=== PATIENT | female | born 1935 | race Caucasian/White ===

== ENCOUNTER 2021-01-16 09:18 | Inpatient (IN) | payer MEDICARE ==
[2021-01-16 10:09] LABS: Anisocytosis Slight; Basophils % (A) 0 %; Eosinophils # (A) 0.2 k/uL (0-0.7); Eosinophils % (A) 1 %; HCT 21.6 % (34.0-46.0); HGB 7.2 gm/dL (11.4-16.0); Hypochromasia Slight; Lymphocytes # (A) 0.8 k/uL (1.0-4.8); Lymphocytes % (A) 4 %; MCHC 33.1 g/dL (31.0-37.0); MCV 93.8 fL (80.0-100.0); Mean Platelet Volume 8.1; Monocytes # (A) 0.6 k/uL (0-1.0); Monocytes % (A) 3 %; Neutrophils # (A) 17.5 k/uL (1.3-7.7); Neutrophils % (A) 91 %; Platelet Count 149 k/uL (150-450); Poikilocytosis Slight; RBC 2.31 m/uL (3.80-5.40); RDW 16.5 % (11.5-15.5); WBC 19.2 k/uL (3.8-10.6)
[2021-01-16 10:26] LABS: Albumin 2.6 g/dL (3.5-5.0); Calcium 9.1 mg/dL (8.4-10.2); Potassium 3.1 mmol/L (3.5-5.1); Total Bilirubin 0.4 mg/dL (0.2-1.3); Total Protein 4.9 g/dL (6.3-8.2)
[2021-01-16 10:32] LABS: INR 1.1 (<1.2); Prothrombin Time 11.2 sec (9.0-12.0)
[2021-01-16 10:45] LABS: Amorphous Sediment,Urine Rare /hpf; Appearance,Urine Cloudy (Clear); Bacteria,Urine Occasional /hpf; Bilirubin,Urine Negative (Negative); Blood,Urine Moderate (Negative); Color,Urine Yellow; Glucose,Urine (UA) Negative (Negative); Hyaline Casts,Urine 1 /lpf (0-2); Ketones,Urine Negative (Negative); Leukocyte Esterase,Urine Small (Negative); Nitrite,Urine Negative (Negative); Protein,Urine 1+ (Negative); RBC,Urine 1 /hpf (0-5); Specific Gravity,Urine 1.014 (1.001-1.035); Urobilinogen,Urine <2.0 mg/dL (<2.0); WBC,Urine 2 /hpf (0-5)
[2021-01-16 10:51] LABS: Partial Thromboplastin Time 21.2 sec (22.0-30.0)
--- NOTE | 2021-01-16 11:51 | XR ---
EXAMINATION TYPE: XR chest 1V portable DATE OF EXAM: 01/16/2021 COMPARISON: NONE HISTORY: Shortness of breath TECHNIQUE: Single frontal view of the chest is obtained. FINDINGS: Diffuse bilateral interstitial and mixed alveolar pattern with basilar infiltrate and smal l effusion. Heart prominent. Diffuse osteopenia. No pneumothorax. IMPRESSION: Diffuse interstitial and alveolar infiltrates correlate for CHF versus interstitial pneu monia.
--- NOTE | 2021-01-16 11:51 | CT ---
EXAMINATION TYPE: CT brain wo con DATE OF EXAM: 01/16/2021 COMPARISON: None HISTORY: altered mental status CT DLP: 1102.4 mGycm Automated exposure control for dose reduction was used. FINDINGS: Moderate generalized degenerative change. Calcification within the high right parietal sulcus likely vascular. Low-attenuation the white matter nonspecific but most typical of remote white matter ischem ia. No mass effect or midline shift. No acute hemorrhage. Intracranial atherosclerotic changes are noted. Calvarium intact. Craniocervical junction maintained. Orbits are symmetric. There is a nasal septal deviation. No significant mucosal thickening. 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
--- NOTE | 2021-01-16 12:32 | ED ---
Altered Mental Status HPI - General Chief Complaint: Altered Mental Status Stated Complaint: altered Source: EMS Mode of arrival: EMS Limitations: altered mental status, physical limitation - History of Present Illness Initial Comments: Patient is an 85-year-old female who presents to the hospital from [facility]. Staff stated that the patient is normally a and O 2-3 however today was only a and O 1. She was also found to have hypoxia on her normal 3 L and she had 2 episodes of dark stool yesterday. Patient has only been at their facility for 2 days. Previously was hospitalized at [facility]. The patient arrives alert and oriented 1. Cannot provide much history. Denies any pain. Reports to a good appetite. The remainder of the HPI is limited due to the poor history provided by [facility] and current clinical condition of the patient. - Related Data Home Medications Medication Instructions Recorded Confirmed Acetaminophen Tab [Tylenol] 650 mg PO Q6H PRN 01/16/21 01/16/21 Albuterol Sulfate [Ventolin HFA] 2 puff INHALATION RT-Q6H PRN 01/16/21 01/16/21 Calcium Carbonate/Vitamin D3 1 tab PO DAILY@0700 01/16/21 01/16/21 [Calcium 500 mg-Vit D3 5 mcg (200 Unit)] Carvedilol [Coreg] 25 mg PO BID@0700,1600 01/16/21 01/16/21 Furosemide [Lasix] 20 mg PO BID@0700,1600 01/16/21 01/16/21 INSULIN LISPRO (humaLOG) [humaLOG] See Protocol SQ ACHS 01/16/21 01/16/21 Insulin Degludec [Tresiba 14 units SQ DAILY@0700 01/16/21 01/16/21 Flextouch U-100] Omeprazole 20 mg PO HS@2000 01/16/21 01/16/21 Allergies Allergy/AdvReac Type Severity Reaction Status Date / Time No Known Allergies Allergy Verified 01/16/21 12:33 Review of Systems ROS Statement: Those systems with pertinent positive or pertinent negative responses have been documented in the HPI. ROS Other: All systems not noted in ROS Statement are negative. Past Medical History Past Medical History: Unable to Obtain, COPD, Hyperlipidemia, Hypertension, Renal Disease History of Any Multi-Drug Resistant Organisms: Unobtainable Past Surgical History: Unable to Obtain Smoking Status: Unknown if ever smoked General Exam Limitations: altered mental status, physical limitation General appearance: lethargic Head exam: Present: atraumatic, normocephalic, normal inspection Eye exam: Present: normal appearance, PERRL, EOMI. Absent: scleral icterus, conjunctival injection, periorbital swelling ENT exam: Present: mucous membranes dry Respiratory exam: Present: normal lung sounds bilaterally. Absent: respiratory distress, wheezes, rales, rhonchi, stridor Cardiovascular Exam: Present: regular rate, normal rhythm, normal heart sounds. Absent: systolic murmur, diastolic murmur, rubs, gallop, clicks GI/Abdominal exam: Present: soft, normal bowel sounds. Absent: distended, tenderness, guarding, rebound, rigid Rectal exam: Present: black stool Extremities exam: Present: normal inspection, full ROM, normal capillary refill. Absent: tenderness, pedal edema, joint swelling, calf tenderness Neurological exam: Present: altered, other (oriented x 1) Psychiatric exam: Present: flat affect Course Vital Signs 01/16/21 01/16/21 01/16/21 09:24 10:29 12:19 Temperature 97.5 F L Pulse Rate 68 71 56 L Respiratory 18 18 17 Rate Blood Pressure 100/46 119/58 103/46 O2 Sat by Pulse 94 L 100 100 Oximetry 01/16/21 01/16/21 01/16/21 14:44 16:18 19:30 Temperature Pulse Rate 68 74 Respiratory 17 18 Rate Blood Pressure 114/56 101/50 O2 Sat by Pulse 97 98 95 Oximetry Procedures - [place] Protocol (Time Out) Nurse: Josefina Hart Medical Decision Making - Medical Decision Making Upon arrival patient was placed in room 16. Thorough history and physical exam was performed. Patient cannot provide much history. I did draw laboratory studies. Chest x-ray and CT of the brain is performed. Lab studies demonstrate a white count of 19.2. Sodium 157. 3.1 potassium. Creatinine is 3. Troponin is 0.757. Rectal exam is performed and demonstrates melenic stools. Patient cannot be heparinized due to current GI bleed. UA demonstrates occasional bacteria. CT of the brain demonstrates degenerative and nonspecific white matter changes. Chest x-ray demonstrates diffuse interstitial and alveolar infiltrates. I did start the patient on gentle fluid hydration with normal saline. Unknown patient's baseline labs. Recommended admission. Dr. Ashraf accepted admission. She is awaiting a bed on the floor. - Lab Data Result diagrams: 01/19/21 10:54 01/19/21 10:54 Lab Results 01/16/21 01/16/21 01/16/21 Range/Units 09:32 09:32 09:32 WBC (3.8-10.6) k/uL RBC (3.80-5.40) m/uL Hgb (11.4-16.0) gm/dL Hct (34.0-46.0) % MCV (80.0-100.0) fL MCH (25.0-35.0) pg MCHC (31.0-37.0) g/dL RDW (11.5-15.5) % Plt Count (150-450) k/uL MPV Neutrophils % % Lymphocytes % % Monocytes % % Eosinophils % % Basophils % % Neutrophils # (1.3-7.7) k/uL Lymphocytes # (1.0-4.8) k/uL Monocytes # (0-1.0) k/uL Eosinophils # (0-0.7) k/uL Basophils # (0-0.2) k/uL Hypochromasia Poikilocytosis Anisocytosis PT 11.2 (9.0-12.0) sec INR 1.1 (<1.2) APTT 21.2 L (22.0-30.0) sec Sodium 157 H (137-145) mmol/L Potassium 3.1 L (3.5-5.1) mmol/L Chloride 119 H (98-107) mmol/L Carbon Dioxide 33 H (22-30) mmol/L Anion Gap 5 mmol/L BUN 92 H (7-17) mg/dL Creatinine 3.08 H (0.52-1.04) mg/dL Est GFR (CKD-EPI)AfAm 15 (>60 ml/min/1.73 sqM) Est GFR (CKD-EPI)NonAf 13 (>60 ml/min/1.73 sqM) Glucose 129 H (74-99) mg/dL Calcium 9.1 (8.4-10.2) mg/dL Total Bilirubin 0.4 (0.2-1.3) mg/dL AST 30 (14-36) U/L ALT 22 (4-34) U/L Alkaline Phosphatase 80 (38-126) U/L Creatine Kinase 86 (30-135) U/L Troponin I 0.757 H* (0.000-0.034) ng/mL Total Protein 4.9 L (6.3-8.2) g/dL Albumin 2.6 L (3.5-5.0) g/dL Urine Color Urine Appearance (Clear) Urine pH (5.0-8.0) Ur Specific [place] (1.001-1.035) Urine Protein (Negative) Urine Glucose (UA) (Negative) Urine Ketones (Negative) Urine Blood (Negative) Urine Nitrite (Negative) Urine Bilirubin (Negative) Urine Urobilinogen (<2.0) mg/dL Ur Leukocyte Esterase (Negative) Urine RBC (0-5) /hpf Urine WBC (0-5) /hpf Amorphous Sediment (None) /hpf Urine Bacteria (None) /hpf Hyaline Casts (0-2) /lpf Stool Occult Blood (Negative) Influenza Type A (PCR) (Not Detectd) Influenza Type B (PCR) (Not Detectd) RSV (PCR) (Not Detectd) SARS-CoV-2 (PCR) (Not Detectd) Blood Type Confirm 01/16/21 01/16/21 01/16/21 Range/Units 09:54 09:54 09:54 WBC 19.2 H (3.8-10.6) k/uL RBC 2.31 L (3.80-5.40) m/uL Hgb 7.2 L (11.4-16.0) gm/dL Hct 21.6 L (34.0-46.0) % MCV 93.8 (80.0-100.0) fL MCH 31.0 (25.0-35.0) pg MCHC 33.1 (31.0-37.0) g/dL RDW 16.5 H (11.5-15.5) % Plt Count 149 L (150-450) k/uL MPV 8.1 Neutrophils % 91 % Lymphocytes % 4 % Monocytes % 3 % Eosinophils % 1 % Basophils % 0 % Neutrophils # 17.5 H (1.3-7.7) k/uL Lymphocytes # 0.8 L (1.0-4.8) k/uL Monocytes # 0.6 (0-1.0) k/uL Eosinophils # 0.2 (0-0.7) k/uL Basophils # 0.0 (0-0.2) k/uL Hypochromasia Slight Poikilocytosis Slight Anisocytosis Slight PT (9.0-12.0) sec INR (<1.2) APTT (22.0-30.0) sec Sodium (137-145) mmol/L Potassium (3.5-5.1) mmol/L Chloride (98-107) mmol/L Carbon Dioxide (22-30) mmol/L Anion Gap mmol/L BUN (7-17) mg/dL Creatinine (0.52-1.04) mg/dL Est GFR (CKD-EPI)AfAm (>60 ml/min/1.73 sqM) Est GFR (CKD-EPI)NonAf (>60 ml/min/1.73 sqM) Glucose (74-99) mg/dL Calcium (8.4-10.2) mg/dL Total Bilirubin (0.2-1.3) mg/dL AST (14-36) U/L ALT (4-34) U/L Alkaline Phosphatase (38-126) U/L Creatine Kinase (30-135) U/L Troponin I (0.000-0.034) ng/mL Total Protein (6.3-8.2) g/dL Albumin (3.5-5.0) g/dL Urine Color Yellow Urine Appearance Cloudy H (Clear) Urine pH 5.0 (5.0-8.0) Ur Specific [place] 1.014 (1.001-1.035) Urine Protein 1+ H (Negative) Urine Glucose (UA) Negative (Negative) Urine Ketones Negative (Negative) Urine Blood Moderate H (Negative) Urine Nitrite Negative (Negative) Urine Bilirubin Negative (Negative) Urine Urobilinogen <2.0 (<2.0) mg/dL Ur Leukocyte Esterase Small H (Negative) Urine RBC 1 (0-5) /hpf Urine WBC 2 (0-5) /hpf Amorphous Sediment Rare H (None) /hpf Urine Bacteria Occasional H (None) /hpf Hyaline Casts 1 (0-2) /lpf Stool Occult Blood Positive H (Negative) Influenza Type A (PCR) (Not Detectd) Influenza Type B (PCR) (Not Detectd) RSV (PCR) (Not Detectd) SARS-CoV-2 (PCR) (Not Detectd) Blood Type Confirm 01/16/21 01/16/21 Range/Units 09:54 09:54 WBC (3.8-10.6) k/uL RBC (3.80-5.40) m/uL Hgb (11.4-16.0) gm/dL Hct (34.0-46.0) % MCV (80.0-100.0) fL MCH (25.0-35.0) pg MCHC (31.0-37.0) g/dL RDW (11.5-15.5) % Plt Count (150-450) k/uL MPV Neutrophils % % Lymphocytes % % Monocytes % % Eosinophils % % Basophils % % Neutrophils # (1.3-7.7) k/uL Lymphocytes # (1.0-4.8) k/uL Monocytes # (0-1.0) k/uL Eosinophils # (0-0.7) k/uL Basophils # (0-0.2) k/uL Hypochromasia Poikilocytosis Anisocytosis PT (9.0-12.0) sec INR (<1.2) APTT (22.0-30.0) sec Sodium (137-145) mmol/L Potassium (3.5-5.1) mmol/L Chloride (98-107) mmol/L Carbon Dioxide (22-30) mmol/L Anion Gap mmol/L BUN (7-17) mg/dL Creatinine (0.52-1.04) mg/dL Est GFR (CKD-EPI)AfAm (>60 ml/min/1.73 sqM) Est GFR (CKD-EPI)NonAf (>60 ml/min/1.73 sqM) Glucose (74-99) mg/dL Calcium (8.4-10.2) mg/dL Total Bilirubin (0.2-1.3) mg/dL AST (14-36) U/L ALT (4-34) U/L Alkaline Phosphatase (38-126) U/L Creatine Kinase (30-135) U/L Troponin I (0.000-0.034) ng/mL Total Protein (6.3-8.2) g/dL Albumin (3.5-5.0) g/dL Urine Color Urine Appearance (Clear) Urine pH (5.0-8.0) Ur Specific [place] (1.001-1.035) Urine Protein (Negative) Urine Glucose (UA) (Negative) Urine Ketones (Negative) Urine Blood (Negative) Urine Nitrite (Negative) Urine Bilirubin (Negative) Urine Urobilinogen (<2.0) mg/dL Ur Leukocyte Esterase (Negative) Urine RBC (0-5) /hpf Urine WBC (0-5) /hpf Amorphous Sediment (None) /hpf Urine Bacteria (None) /hpf Hyaline Casts (0-2) /lpf Stool Occult Blood (Negative) Influenza Type A (PCR) Not Detected (Not Detectd) Influenza Type B (PCR) Not Detected (Not Detectd) RSV (PCR) Not Detected (Not Detectd) SARS-CoV-2 (PCR) Not Detected (Not Detectd) Blood Type Confirm A Positive - EKG Data EKG Comments: EKG demonstrates normal sinus rhythm with a ventricular rate of 78. MN interval 144. QRS 102. QTC 446. No acute ST segment elevations. Inverted T-wave lead 1 and aVL. Disposition Clinical Impression: Acute encephalopathy, DMITRIY (acute kidney injury), Hypernatremia, GI bleed, Anemia, NSTEMI (non-ST elevated myocardial infarction) Disposition: ADMITTED IP TO THIS [facility] Condition: Poor Is patient prescribed a controlled substance at d/c from ED?: No Decision to Admit Reason: Admit from EC Decision Date: 01/16/21 Decision Time: 12:47
[2021-01-16] MEDS ORDERED: SODIUM CHLORIDE 0.9% 1,000 ML IV SCH (12:45)
[2021-01-16] MEDS ORDERED: DEXTROSE 5% IN WATER 1,000 ML IV SCH (12:45)
[2021-01-16] MEDS ORDERED: NALOXONE 0.4 MG/ML 1 ML VIAL IV PRN (12:47)
[2021-01-16] MEDS ORDERED: PANTOPRAZOLE 40 MG/10 ML VIAL IVP ONE (12:51)
--- NOTE | 2021-01-16 13:38 | US ---
EXAMINATION TYPE: US renals and bladder DATE OF EXAM: 01/16/2021 COMPARISON: NONE CLINICAL HISTORY: paco. pt very confused, paco EXAM MEASUREMENTS: Right Kidney: 8.8 x 3.9 x 4.4 cm Left Kidney: 9.3 x 4.1 x 5.1 cm Right Kidney: Small in size no hydronephrosis or masses seen Left Kidney: No hydronephrosis or masses seen Bladder: wnl Increased cortical echogenicity in bilateral kidneys. Bilateral kidneys slightly small in size to low er limits of normal. No concerning masses identified on images saved. No hydronephrosis seen. Bladder satisfactorily distended. IMPRESSION: Evidence of chronic medical renal disease, no hydronephrosis noted bilaterally.
[2021-01-16] MEDS ORDERED: POTASSIUM CHLORIDE 20 MEQ in WATER FOR INJECTION 1 100ML.BAG IVPB SCH (14:07)
--- NOTE | 2021-01-16 14:18 | P.NPCON ---
History of Present Illness - Reason for Consult acute renal failure, hypernatremia - History of Present Illness Reason for consultation: Acute kidney injury and electrolyte imbalance History of present illness: The patient is a 85-year-old female seen in consultation for acute kidney injury and electrolyte imbalance. Patient is not a reliable historian and is only moaning. Patient's sodium level was 157, potassium level III.1. Her creatinine was 3.08. Unknown baseline renal function. She did receive 1 L bolus of normal saline in the ER. In home medications I do see Lasix 20 mEq twice daily which is currently held. Right kidney is noted to be small in size but there was no evidence of hydronephrosis and kidney ultrasound. There is also concern for GI bleed. Hemoglobin was 7.2. GI has been consulted. Blood pressure was 103/46 this afternoon. She has been voiding. Incontinent. No fever. Tested negative for coronavirus. Vital signs are stable. General: The patient appeared well nourished and normally developed. HEENT: Head exam is unremarkable. Neck is without jugular venous distension. LUNGS: Breath sounds decreased. HEART: Rate and Rhythm are regular. ABDOMEN: Soft, no distention. EXTREMITITES: No edema. Past Medical History Past Medical History: Unable to Obtain, COPD, Hyperlipidemia, Hypertension, Renal Disease History of Any Multi-Drug Resistant Organisms: Unobtainable Past Surgical History: Unable to Obtain Smoking Status: Unknown if ever smoked Medications and Allergies Home Medications Medication Instructions Recorded Confirmed Type Acetaminophen Tab [Tylenol] 650 mg PO Q6H PRN 01/16/21 01/16/21 History Albuterol Sulfate [Ventolin HFA] 2 puff INHALATION RT-Q6H PRN 01/16/21 01/16/21 History Calcium Carbonate/Vitamin D3 1 tab PO DAILY@0700 01/16/21 01/16/21 History [Calcium 500 mg-Vit D3 5 mcg (200 Unit)] Carvedilol [Coreg] 25 mg PO BID@0700,1600 01/16/21 01/16/21 History Furosemide [Lasix] 20 mg PO BID@0700,1600 01/16/21 01/16/21 History INSULIN LISPRO (humaLOG) [humaLOG] See Protocol SQ ACHS 01/16/21 01/16/21 History Insulin Degludec [Tresiba 14 units SQ DAILY@0700 01/16/21 01/16/21 History Flextouch U-100] Omeprazole 20 mg PO HS@199901/16/21 01/16/21 History Allergies Allergy/AdvReac Type Severity Reaction Status Date / Time No Known Allergies Allergy Verified 01/16/21 12:33 Physical Exam Vitals: Vital Signs Temp Pulse Resp BP Pulse Ox 01/16/21 12:19 56 L 17 103/46 100 01/16/21 10:29 71 18 119/58 100 01/16/21 09:24 97.5 F L 68 18 100/46 94 L Intake and Output 01/15/21 01/16/21 01/16/21 22:59 06:59 14:59 Other: Weight 68.039 kg Results - Lab Results Most recent lab results Calcium 9.1 mg/dL (8.4-10.2) 01/16/21 09:32 01/16/21 09:54 01/16/21 09:32 Assessment and Plan Plan: Assessment: 1. Acute kidney injury mostly prerenal secondary to hypovolemia and diuretics. Creatinine 3.08 on admission. Unknown baseline renal function. No hydronephrosis noted on kidney ultrasound. Right kidney atrophic. 2. Hypernatremia from lack of oral water intake. 3. Hypokalemia from poor intake and diuretics. 4. Diabetes mellitus. 5. Anemia. Possible GI bleed. GI consulted. Plan: I will change IV fluids to half-normal saline to be run at 125 mL an hour. Replace potassium. Check magnesium level. Repeat BMP this evening. Hold diuretics. Check iron studies. Thank you for the consultation. I will continue to follow the patient with you during her hospital stay.
[2021-01-16] MEDS: POTASSIUM CHLORIDE 20 MEQ in WATER FOR INJECTION 1 100ML.BAG IVPB SCH ×2 (15:06→19:20)
[2021-01-16] MEDS: SODIUM CHLORIDE 0.45% 1,000 ML IV SCH ×2 (15:44→23:57)
[2021-01-16] MEDS ORDERED: ACETAMINOPHEN TAB 325 MG TAB PO PRN (17:08)
[2021-01-16] MEDS ORDERED: ALBUTEROL HFA INHALER INHALATION PRN (17:08)
--- NOTE | 2021-01-16 17:21 | P.HPIM ---
History of Present Illness 85-year-old female was sent in because of altered mental status and confusion I'm unable to get much of the history from the patient. Patient found to be severely dehydrated hyper David 3 make. And very low potassium level of 3.1. Patient to serum creatinine is 2.08 baseline is unknown patient received 1 L bolus of normal saline. Patient also takes Lasix as an outpatient. Patient has mildly elevated BNP although no clinical evidence of CHF at this time patient had an ultrasound of the kidney which showed small right-sided kidney and no evidence of hydronephrosis. Patient was also having multiple dark stools. Gastroenterology will evaluate the patient. Patient has mildly elevated troponins patient although denied any chest pain when questioned. Second set of troponin remained stable at the same level EKG showed some ST-T wave abnormalities in the inferior leads and appears to have left ventricular hypertrophy and ST-T wave abnormality this is probably secondary to left ventricular hypertrophy. Review of Systems -Acute renal failure pedal azotemia from severe dehydration and diuretics and the patient was started on half-normal saline patient present creatinine is 0.08 baseline is not available. There may be a competent of chronic kidney disease as well as a cannot stage II chronic kidney disease at this time -Hyponatremia hypovolemic hyponatremia -Metabolic encephalopathy severe -Type 2 diabetes mellitus -Acute upper GI bleed patient will be started on Protonix twice a day, gastroenterology will evaluate the patient -COPD without any acute exacerbation Past Medical History Past Medical History: Unable to Obtain, COPD, Hyperlipidemia, Hypertension, Renal Disease History of Any Multi-Drug Resistant Organisms: Unobtainable Past Surgical History: Unable to Obtain Smoking Status: Unknown if ever smoked Medications and Allergies Home Medications Medication Instructions Recorded Confirmed Type Acetaminophen Tab [Tylenol] 650 mg PO Q6H PRN 01/16/21 01/16/21 History Albuterol Sulfate [Ventolin HFA] 2 puff INHALATION RT-Q6H PRN 01/16/21 01/16/21 History Calcium Carbonate/Vitamin D3 1 tab PO DAILY@0700 01/16/21 01/16/21 History [Calcium 500 mg-Vit D3 5 mcg (200 Unit)] Carvedilol [Coreg] 25 mg PO BID@0700,1600 01/16/21 01/16/21 History Furosemide [Lasix] 20 mg PO BID@0700,1600 01/16/21 01/16/21 History INSULIN LISPRO (humaLOG) [humaLOG] See Protocol SQ ACHS 01/16/21 01/16/21 Histo ry Insulin Degludec [Tresiba 14 units SQ DAILY@0700 01/16/21 01/16/21 History Flextouch U-100] Omeprazole 20 mg PO HS@199901/16/21 01/16/21 History Allergies Allergy/AdvReac Type Severity Reaction Status Date / Time No Known Allergies Allergy Verified 01/16/21 12:33 Physical Exam Vitals: Vital Signs Temp Pulse Resp BP Pulse Ox 01/16/21 16:18 98 01/16/21 14:44 68 17 114/56 97 01/16/21 12:19 56 L 17 103/46 100 01/16/21 10:29 71 18 119/58 100 01/16/21 09:24 97.5 F L 68 18 100/46 94 L Intake and Output 01/16/21 01/16/21 01/16/21 06:59 14:59 22:59 Other: Weight 68.039 kg Results CBC & Chem 7: 01/16/21 09:54 01/16/21 09:32 Labs: Abnormal Lab Results - Last 24 Hours (Table) 01/16/21 01/16/21 01/16/21 Range/Units 09:32 09:32 09:32 WBC (3.8-10.6) k/uL RBC (3.80-5.40) m/uL Hgb (11.4-16.0) gm/dL Hct (34.0-46.0) % RDW (11.5-15.5) % Plt Count (150-450) k/uL Neutrophils # (1.3-7.7) k/uL Lymphocytes # (1.0-4.8) k/uL APTT 21.2 L (22.0-30.0) sec Sodium 157 H (137-145) mmol/L Potassium 3.1 L (3.5-5.1) mmol/L Chloride 119 H (98-107) mmol/L Carbon Dioxide 33 H (22-30) mmol/L BUN 92 H (7-17) mg/dL Creatinine 3.08 H (0.52-1.04) mg/dL Glucose 129 H (74-99) mg/dL Troponin I 0.757 H* (0.000-0.034) ng/mL Total Protein 4.9 L (6.3-8.2) g/dL Albumin 2.6 L (3.5-5.0) g/dL Urine Appearance (Clear) Urine Protein (Negative) Urine Blood (Negative) Ur Leukocyte Esterase (Negative) Amorphous Sediment (None) /hpf Urine Bacteria (None) /hpf Stool Occult Blood (Negative) 01/16/21 01/16/21 01/16/21 Range/Units 09:54 09:54 09:54 WBC 19.2 H (3.8-10.6) k/uL RBC 2.31 L (3.80-5.40) m/uL Hgb 7.2 L (11.4-16.0) gm/dL Hct 21.6 L (34.0-46.0) % RDW 16.5 H (11.5-15.5) % Plt Count 149 L (150-450) k/uL Neutrophils # 17.5 H (1.3-7.7) k/uL Lymphocytes # 0.8 L (1.0-4.8) k/uL APTT (22.0-30.0) sec Sodium (137-145) mmol/L Potassium (3.5-5.1) mmol/L Chloride (98-107) mmol/L Carbon Dioxide (22-30) mmol/L BUN (7-17) mg/dL Creatinine (0.52-1.04) mg/dL Glucose (74-99) mg/dL Troponin I (0.000-0.034) ng/mL Total Protein (6.3-8.2) g/dL Albumin (3.5-5.0) g/dL Urine Appearance Cloudy H (Clear) Urine Protein 1+ H (Negative) Urine Blood Moderate H (Negative) Ur Leukocyte Esterase Small H (Negative) Amorphous Sediment Rare H (None) /hpf Urine Bacteria Occasional H (None) /hpf Stool Occult Blood Positive H (Negative) 01/16/21 Range/Units 15:03 WBC (3.8-10.6) k/uL RBC (3.80-5.40) m/uL Hgb (11.4-16.0) gm/dL Hct (34.0-46.0) % RDW (11.5-15.5) % Plt Count (150-450) k/uL Neutrophils # (1.3-7.7) k/uL Lymphocytes # (1.0-4.8) k/uL APTT (22.0-30.0) sec Sodium (137-145) mmol/L Potassium (3.5-5.1) mmol/L Chloride (98-107) mmol/L Carbon Dioxide (22-30) mmol/L BUN (7-17) mg/dL Creatinine (0.52-1.04) mg/dL Glucose (74-99) mg/dL Troponin I 0.709 H* (0.000-0.034) ng/mL Total Protein (6.3-8.2) g/dL Albumin (3.5-5.0) g/dL Urine Appearance (Clear) Urine Protein (Negative) Urine Blood (Negative) Ur Leukocyte Esterase (Negative) Amorphous Sediment (None) /hpf Urine Bacteria (None) /hpf Stool Occult Blood (Negative)
[2021-01-16 19:40] LABS: Glucose,Whole Blood 255 mg/dL (75-99)
[2021-01-16] MEDS: INSULIN ASPART (NovoLOG) 100 UNIT/ML VIAL SQ SCH ×2 (19:42→22:52)
[2021-01-16 21:00] LABS: Anisocytosis Slight; HCT 20.5 % (34.0-46.0); Hypochromasia Slight; MCH 29.7 pg (25.0-35.0); MCHC 31.4 g/dL (31.0-37.0); MCV 94.7 fL (80.0-100.0); Macrocytosis Slight; Mean Platelet Volume 9.3; Platelet Count 138 k/uL (150-450); Poikilocytosis Slight; RBC 2.16 m/uL (3.80-5.40); RDW 17.4 % (11.5-15.5); WBC 18.6 k/uL (3.8-10.6)
[2021-01-16] MEDS ORDERED: FAMOTIDINE 20 MG TAB PO SCH (21:00)
[2021-01-16] MEDS ORDERED: HEPARIN SODIUM,PORCINE/PF 5,000 UNIT/0.5 ML SYRINGE SQ SCH (21:00)
[2021-01-16 21:05] LABS: HGB 6.4 gm/dL (11.4-16.0)
[2021-01-16 21:06] LABS: Calcium 8.7 mg/dL (8.4-10.2); Potassium 3.4 mmol/L (3.5-5.1)
[2021-01-16 21:48] LABS: Glucose,Whole Blood 136 mg/dL (75-99)
[2021-01-16] MEDS ORDERED: POTASSIUM CHLORIDE 20 MEQ in WATER FOR INJECTION 1 100ML.BAG IVPB STA (22:45)
[2021-01-17 05:10] LABS: Glucose,Whole Blood 93 mg/dL (75-99)
[2021-01-17 06:24] LABS: Glucose,Whole Blood 114 mg/dL (75-99)
[2021-01-17] MEDS: INSULIN ASPART (NovoLOG) 100 UNIT/ML VIAL SQ SCH ×4 (06:27→20:23)
[2021-01-17 09:09] LABS: Anisocytosis Slight; Basophils # (A) 0.1 k/uL (0-0.2); Basophils % (A) 0 %; Eosinophils # (A) 0.6 k/uL (0-0.7); Eosinophils % (A) 4 %; HCT 28.3 % (34.0-46.0); Hypochromasia Slight; Lymphocytes # (A) 0.8 k/uL (1.0-4.8); Lymphocytes % (A) 4 %; MCH 31.1 pg (25.0-35.0); MCV 91.6 fL (80.0-100.0); Mean Platelet Volume 7.3; Monocytes # (A) 0.6 k/uL (0-1.0); Monocytes % (A) 4 %; Neutrophils # (A) 15.2 k/uL (1.3-7.7); Neutrophils % (A) 88 %; Platelet Count 120 k/uL (150-450); Poikilocytosis Slight; RBC 3.09 m/uL (3.80-5.40); RDW 16.5 % (11.5-15.5); WBC 17.3 k/uL (3.8-10.6)
[2021-01-17 09:16] LABS: HGB 9.6 gm/dL (11.4-16.0)
[2021-01-17 09:21] LABS: Albumin 2.4 g/dL (3.5-5.0); Calcium 8.6 mg/dL (8.4-10.2); Magnesium 1.9 mg/dL (1.6-2.3); Total Bilirubin 0.4 mg/dL (0.2-1.3); Total Protein 4.7 g/dL (6.3-8.2)
[2021-01-17] MEDS: PANTOPRAZOLE 40 MG/10 ML VIAL IVP SCH (09:23)
[2021-01-17] MEDS: SODIUM CHLORIDE 0.45% 1,000 ML IV SCH (09:25)
--- NOTE | 2021-01-17 10:32 | XR ---
EXAMINATION TYPE: XR chest 1V DATE OF EXAM: 01/17/2021 CLINICAL HISTORY: Difficulty breathing and CHF progress study. TECHNIQUE: Single AP portable upright view of the chest is obtained. COMPARISON: Chest x-ray from one day earlier. FINDINGS: Persistent bilateral reticulonodular multifocal and confluent opacities on background low lung volumes. Osseous structures remain demineralized. Cardiac silhouette size is stable and mildly e nlarged with atherosclerotic change aortic knob. IMPRESSION: No significant change from one day earlier. Lack of pleural effusions would argue against CHF exacerbation. Correlate to exclude covid-19 infection in current environment advised. Correlatio n with old outside x-ray or CT would be extremely beneficial to assess if there is underlying chronic parenchymal fibrosis.
[2021-01-17 11:00] LABS: % Iron Saturation 25.53 (12.00-45.00); Ferritin 622.4 ng/mL (10.0-291.0)
--- NOTE | 2021-01-17 11:32 | P.PN ---
Subjective Patient is seen in follow-up for acute kidney injury and electrode imbalance. Patient is not a reliable historian. Renal function is improving. Sodium level C154 this morning. Hemoglobin improved post blood transfusion. Blood pressure stable. Incontinent. Vital signs are stable. General: The patient appeared well nourished and normally developed. HEENT: Head exam is unremarkable. Neck is without jugular venous distension. LUNGS: Breath sounds decreased. HEART: Rate and Rhythm are regular. ABDOMEN: Soft, nontender. EXTREMITITES: No edema. Objective - Vital Signs Vital signs: Vital Signs Temp 97.8 F 01/17/21 08:06 Pulse 71 01/17/21 09:20 Resp 16 01/17/21 09:20 BP 124/71 01/17/21 08:06 Pulse Ox 98 01/17/21 08:06 Intake & Output 01/16/21 01/17/21 01/17/21 18:59 06:59 18:59 Intake Total 1620 Output Total 900 Balance 720 Weight 68.039 kg 54 kg Intake: Intake, IV Titration 1000 Amount Sodium Chloride 0.45% 1, 1000 000 ml @ 125 mls/hr IV . Q8H [facility] Rx#:[id number] Blood Product 620 Rc As-1 Unit 310 [id number] Output: Urine 900 Straight 900 Other: Voiding Method Diaper Diaper - Labs CBC & Chem 7: 01/17/21 08:51 01/17/21 08:51 Labs: Abnormal Lab Results - Last 24 Hours (Table) 01/16/21 01/16/21 01/16/21 Range/Units 15:03 15:03 19:39 WBC (3.8-10.6) k/uL RBC (3.80-5.40) m/uL Hgb (11.4-16.0) gm/dL Hct (34.0-46.0) % RDW (11.5-15.5) % Plt Count (150-450) k/uL Neutrophils # (1.3-7.7) k/uL Lymphocytes # (1.0-4.8) k/uL Sodium (137-145) mmol/L Potassium (3.5-5.1) mmol/L Chloride (98-107) mmol/L BUN (7-17) mg/dL Creatinine (0.52-1.04) mg/dL Glucose (74-99) mg/dL POC Glucose (mg/dL) 255 H (75-99) mg/dL Iron 48 L (50-170) ug/dL TIBC 188 L (228-460) ug/dL Ferritin 622.4 H (10.0-291.0) ng/mL AST (14-36) U/L Troponin I 0.709 H* (0.000-0.034) ng/mL Total Protein (6.3-8.2) g/dL Albumin (3.5-5.0) g/dL Crossmatch 01/16/21 01/16/21 01/16/21 Range/Units 20:49 20:49 21:46 WBC 18.6 H (3.8-10.6) k/uL RBC 2.16 L (3.80-5.40) m/uL Hgb 6.4 L* (11.4-16.0) gm/dL Hct 20.5 L (34.0-46.0) % RDW 17.4 H (11.5-15.5) % Plt Count 138 L (150-450) k/uL Neutrophils # (1.3-7.7) k/uL Lymphocytes # (1.0-4.8) k/uL Sodium 156 H (137-145) mmol/L Potassium 3.4 L (3.5-5.1) mmol/L Chloride 120 H (98-107) mmol/L BUN 96 H (7-17) mg/dL Creatinine 2.78 H (0.52-1.04) mg/dL Glucose 144 H (74-99) mg/dL POC Glucose (mg/dL) 136 H (75-99) mg/dL Iron (50-170) ug/dL TIBC (228-460) ug/dL Ferritin (10.0-291.0) ng/mL AST (14-36) U/L Troponin I (0.000-0.034) ng/mL Total Protein (6.3-8.2) g/dL Albumin (3.5-5.0) g/dL Crossmatch 01/16/21 01/17/21 01/17/21 Range/Units 22:48 06:22 08:51 WBC 17.3 H (3.8-10.6) k/uL RBC 3.09 L (3.80-5.40) m/uL Hgb 9.6 L D (11.4-16.0) gm/dL Hct 28.3 L (34.0-46.0) % RDW 16.5 H (11.5-15.5) % Plt Count 120 L (150-450) k/uL Neutrophils # 15.2 H (1.3-7.7) k/uL Lymphocytes # 0.8 L (1.0-4.8) k/uL Sodium (137-145) mmol/L Potassium (3.5-5.1) mmol/L Chloride (98-107) mmol/L BUN (7-17) mg/dL Creatinine (0.52-1.04) mg/dL Glucose (74-99) mg/dL POC Glucose (mg/dL) 114 H (75-99) mg/dL Iron (50-170) ug/dL TIBC (228-460) ug/dL Ferritin (10.0-291.0) ng/mL AST (14-36) U/L Troponin I (0.000-0.034) ng/mL Total Protein (6.3-8.2) g/dL Albumin (3.5-5.0) g/dL Crossmatch See Detail 01/17/21 Range/Units 08:51 WBC (3.8-10.6) k/uL RBC (3.80-5.40) m/uL Hgb (11.4-16.0) gm/dL Hct (34.0-46.0) % RDW (11.5-15.5) % Plt Count (150-450) k/uL Neutrophils # (1.3-7.7) k/uL Lymphocytes # (1.0-4.8) k/uL Sodium 154 H (137-145) mmol/L Potassium (3.5-5.1) mmol/L Chloride 122 H (98-107) mmol/L BUN 83 H (7-17) mg/dL Creatinine 2.53 H (0.52-1.04) mg/dL Glucose 104 H (74-99) mg/dL POC Glucose (mg/dL) (75-99) mg/dL Iron (50-170) ug/dL TIBC (228-460) ug/dL Ferritin (10.0-291.0) ng/mL AST 45 H (14-36) U/L Troponin I (0.000-0.034) ng/mL Total Protein 4.7 L (6.3-8.2) g/dL Albumin 2.4 L (3.5-5.0) g/dL Crossmatch Assessment and Plan Plan: Assessment: 1. Acute kidney injury mostly prerenal secondary to hypovolemia, anemia and diuretics. Creatinine 3.08 on admission - 2.53 today. Unknown baseline renal function. No hydronephrosis noted on kidney ultrasound. Right kidney atrophic. 2. Hypernatremia from lack of oral water intake. 3. Hypokalemia from poor intake and diuretics. Status post replacement. Better. 4. Diabetes mellitus. 5. Anemia. Possible GI bleed. Status post blood transfusion. GI consulted. Iron replete. Plan: I will change IV fluids to D5W to be run at 100 mL an hour. Repeat sodium level this evening. Hold diuretics. Add Aranesp.
[2021-01-17] MEDS ORDERED: DARBEPOETIN ALFA 40 MCG/0.4 ML SYRINGE SQ SCH (11:45)
[2021-01-17 11:57] LABS: Glucose,Whole Blood 105 mg/dL (75-99)
[2021-01-17] MEDS: DEXTROSE 5% IN WATER 1,000 ML IV SCH ×2 (13:06→20:24)
--- NOTE | 2021-01-17 14:10 | CONS ---
CONSULTATION DATE OF DICTATION: January 17, 2021. REASON FOR CONSULTATION: Anemia and black stools. HISTORY OF PRESENT ILLNESS: The patient is an 85-year-old pleasant white female admitted to the hospital with altered mental status. Apparently, when she came to the emergency room, she was complaining of some dark colored stools and she was noted to have anemia with a hemoglobin of 7.5 g/dL and subsequently the hemoglobin dropped to 6.4 g/dL. She received one unit of PRBC transfusion and repeat hemoglobin today is 9.6 g/dL. The patient denies any abdominal pain. She thinks she has been having some dark-colored stools for the last few days, but she attributes some of this to iron supplements that she has been taking. She reports no peptic ulcer disease. Denies any nausea, vomiting. PAST MEDICAL HISTORY: Significant for hypertension, hyperlipidemia, chronic kidney disease, diabetes mellitus. MEDICATIONS AT HOME: Tylenol, Ventolin, calcium carbonate, Coreg, Lasix, Humalog, Tresiba, omeprazole. ALLERGIES: No known drug allergies. SOCIAL HISTORY: She denies any smoking. No alcohol use. FAMILY HISTORY: Unremarkable. REVIEW OF SYSTEMS: CARDIOPULMONARY: She denies any chest pain, no shortness of breath. GENITOURINARY: No dysuria, no hematuria. MUSCULOSKELETAL: Unremarkable. GI: Poor oral intake, poor appetite. ENT/VISION: Unremarkable. CONSTITUTIONAL: No recent weight loss. No fever, chills, night sweats. HEMATOLOGY: Severe anemia as mentioned above. ENDOCRINE: Unremarkable. PHYSICAL EXAMINATION: She appears comfortable. She is quite sleepy, but very easily arousable and answers appropriately. Vital signs are stable. Blood pressure is 124/71, pulse rate 71, temperature 97.8. HEENT EXAMINATION: Unremarkable. Conjunctivae pink. Sclerae anicteric. Oral cavity no lesions. NECK: No JVD or lymph node enlargement. CHEST: Was clear to auscultation. HEART: Regular rate and rhythm. ABDOMEN: Soft, it was nontender, nondistended. Bowel sounds are positive. No organomegaly. EXTREMITIES: No pedal edema. NEURO: She is awake, alert to name, place and time. LABS: Labs at the time of admission to the hospital, WBC 18.6, hemoglobin 6.4, platelets 138. PT, INR is within normal limits. BUN was 96, creatinine 2.78. Today, BUN is 83, creatinine 2.53. Iron 48, TIBC 188, iron saturation 25, and ferritin 622. Stool occult blood is positive. Coronavirus PCR is negative. IMPRESSION: 1. Severe symptomatic anemia with Hemoccult-positive stool. Patient having black tarry stools for the last 2 or 3 days duration. Rule out possibility of upper gastrointestinal bleeding. The patient is status post one unit of PRBC transfusion. Last hemoglobin is 9.6 g/dL. 2. Altered mental status, gradually improving. 3. Acute kidney injury. Nephrology following the patient closely. 4. History of diabetes mellitus. 5. History of hypertension. RECOMMENDATIONS: 1. Continue with IV Protonix 40 mg q.12 hours. 2. Monitor CBC daily. 3. We will proceed with an upper endoscopy tomorrow. Discussed the risks, benefits and complications with the patient and she is agreeable to it. Thank you for this consultation. MMODL / IJN: [id number] /
--- NOTE | 2021-01-17 15:50 | P.PN ---
Subjective 85-year-old female was sent in because of altered mental status and confusion I'm unable to get much of the history from the patient. Patient found to be severely dehydrated hyper David 3 make. And very low potassium level of 3.1. Patient to serum creatinine is 2.08 baseline is unknown patient received 1 L bolus of normal saline. Patient also takes Lasix as an outpatient. Patient has mildly elevated BNP although no clinical evidence of CHF at this time patient had an ultrasound of the kidney which showed small right-sided kidney and no ev idence of hydronephrosis. Patient was also having multiple dark stools. Gastroenterology will evaluate the patient. Patient has mildly elevated troponins patient although denied any chest pain when questioned. Second set of troponin remained stable at the same level EKG showed some ST-T wave abn ormalities in the inferior leads and appears to have left ventricular hypertrophy and ST-T wave abnormality this is probably secondary to left ventricular hypertrophy. 01/17/2021 Patient is much more awake today patient overall had significant clinical improvement patient is a alert oriented times close to 2 today. Patient creatinine minimally improved serum sodium minimally improved. Patient received PRBC transfusion after which her hemoglobin went up to 9.6 received total of clearance of a recent transfusion. Patient had a repeat chest x-ray considering that if she is requiring more oxygen which did not show any CHF may have some pulmonary fibrosis. Patient will undergo upper GI endoscopy tomorrow Constitutional: Denied any fatigue denied any fever. Cardio vascular: denied any chest pain, palpitations Gastrointestinal denied any nausea vomiting Pulmonary: Denied any shortness of breath cough Neurologic denied any new focal deficits All inpatient medications were reviewed and appropriate changes in these medications as dictated in the interval history and assessment and plan. Objective - Vital Signs Vital signs: Vital Signs Temp 97.8 F 01/17/21 12:30 Pulse 74 01/17/21 14:00 Resp 18 01/17/21 14:00 BP 127/78 01/17/21 12:30 Pulse Ox 97 01/17/21 12:30 Intake & Output 01/16/21 01/17/21 01/17/21 18:59 06:59 18:59 Intake Total 1620 975 Output Total 900 Balance 720 975 Weight 68.039 kg 54 kg Intake: Intake, IV Titration 1000 975 Amount Dextrose 5% in Water 1, 100 000 ml @ 100 mls/hr IV . Q10H [facility] Rx#:[id number] Sodium Chloride 0.45% 1, 1000 875 000 ml @ 125 mls/hr IV . Q8H [facility] Rx#:[id number] Blood Product 620 Rc As-1 Unit 310 [id number] Output: Urine 900 Straight 900 Other: Voiding Method Diaper Diaper - Exam PHYSICAL EXAMINATION: GENERAL: The patient is alert and oriented x2, not in any acute distress. Thin built HEENT: Pupils are round and equally reacting to light. EOMI. No scleral icterus. No conjunctival pallor. Normocephalic, atraumatic. No pharyngeal erythema. No thyromegaly. CARDIOVASCULAR: S1 and S2 present. No murmurs, rubs, or gallops. PULMONARY: Chest is clear to auscultation, no wheezing or crackles. ABDOMEN: Soft, nontender, nondistended, normoactive bowel sounds. No palpable organomegaly. MUSCULOSKELETAL: No joint swelling or deformity. EXTREMITIES: No cyanosis, clubbing, or pedal edema. NEUROLOGICAL: Gross neurological examination did not reveal any focal deficits. SKIN: No rashes. - Labs CBC & Chem 7: 01/17/21 08:51 01/17/21 08:51 Labs: Abnormal Lab Results - Last 24 Hours (Table) 01/16/21 01/16/21 01/16/21 Range/Units 15:03 15:03 19:39 WBC (3.8-10.6) k/uL RBC (3.80-5.40) m/uL Hgb (11.4-16.0) gm/dL Hct (34.0-46.0) % RDW (11.5-15.5) % Plt Count (150-450) k/uL Neutrophils # (1.3-7.7) k/uL Lymphocytes # (1.0-4.8) k/uL Sodium (137-145) mmol/L Potassium (3.5-5.1) mmol/L Chloride (98-107) mmol/L BUN (7-17) mg/dL Creatinine (0.52-1.04) mg/dL Glucose (74-99) mg/dL POC Glucose (mg/dL) 255 H (75-99) mg/dL Iron 48 L (50-170) ug/dL TIBC 188 L (228-460) ug/dL Ferritin 622.4 H (10.0-291.0) ng/mL AST (14-36) U/L Troponin I 0.709 H* (0.000-0.034) ng/mL Total Protein (6.3-8.2) g/dL Albumin (3.5-5.0) g/dL Crossmatch 01/16/21 01/16/21 01/16/21 Range/Units 20:49 20:49 21:46 WBC 18.6 H (3.8-10.6) k/uL RBC 2.16 L (3.80-5.40) m/uL Hgb 6.4 L* (11.4-16.0) gm/dL Hct 20.5 L (34.0-46.0) % RDW 17.4 H (11.5-15.5) % Plt Count 138 L (150-450) k/uL Neutrophils # (1.3-7.7) k/uL Lymphocytes # (1.0-4.8) k/uL Sodium 156 H (137-145) mmol/L Potassium 3.4 L (3.5-5.1) mmol/L Chloride 120 H (98-107) mmol/L BUN 96 H (7-17) mg/dL Creatinine 2.78 H (0.52-1.04) mg/dL Glucose 144 H (74-99) mg/dL POC Glucose (mg/dL) 136 H (75-99) mg/dL Iron (50-170) ug/dL TIBC (228-460) ug/dL Ferritin (10.0-291.0) ng/mL AST (14-36) U/L Troponin I (0.000-0.034) ng/mL Total Protein (6.3-8.2) g/dL Albumin (3.5-5.0) g/dL Crossmatch 01/16/21 01/17/21 01/17/21 Range/Units 22:48 06:22 08:51 WBC 17.3 H (3.8-10.6) k/uL RBC 3.09 L (3.80-5.40) m/uL Hgb 9.6 L D (11.4-16.0) gm/dL Hct 28.3 L (34.0-46.0) % RDW 16.5 H (11.5-15.5) % Plt Count 120 L (150-450) k/uL Neutrophils # 15.2 H (1.3-7.7) k/uL Lymphocytes # 0.8 L (1.0-4.8) k/uL Sodium (137-145) mmol/L Potassium (3.5-5.1) mmol/L Chloride (98-107) mmol/L BUN (7-17) mg/dL Creatinine (0.52-1.04) mg/dL Glucose (74-99) mg/dL POC Glucose (mg/dL) 114 H (75-99) mg/dL Iron (50-170) ug/dL TIBC (228-460) ug/dL Ferritin (10.0-291.0) ng/mL AST (14-36) U/L Troponin I (0.000-0.034) ng/mL Total Protein (6.3-8.2) g/dL Albumin (3.5-5.0) g/dL Crossmatch See Detail 01/17/21 01/17/21 Range/Units 08:51 11:54 WBC (3.8-10.6) k/uL RBC (3.80-5.40) m/uL Hgb (11.4-16.0) gm/dL Hct (34.0-46.0) % RDW (11.5-15.5) % Plt Count (150-450) k/uL Neutrophils # (1.3-7.7) k/uL Lymphocytes # (1.0-4.8) k/uL Sodium 154 H (137-145) mmol/L Potassium (3.5-5.1) mmol/L Chloride 122 H (98-107) mmol/L BUN 83 H (7-17) mg/dL Creatinine 2.53 H (0.52-1.04) mg/dL Glucose 104 H (74-99) mg/dL POC Glucose (mg/dL) 105 H (75-99) mg/dL Iron (50-170) ug/dL TIBC (228-460) ug/dL Ferritin (10.0-291.0) ng/mL AST 45 H (14-36) U/L Troponin I (0.000-0.034) ng/mL Total Protein 4.7 L (6.3-8.2) g/dL Albumin 2.4 L (3.5-5.0) g/dL Crossmatch Assessment and Plan Plan: -Acute upper GI bleed and acute blood loss anemia from acute upper GI bleed patient will be started on Protonix twice a day, gastroenterology evaluated the patient, patient will undergo upper GI endoscopy tomorrow. -Severe metabolic encephalopathy would warrant encephalopathy from renal failure. No evidence of infection at this time. -Acute renal failure prerenal azotemia from severe dehydration and diuretics and the patient was started on half-normal saline patient's creatinine minimally improved. -Hyponatremia hypovolemic hyponatremia: Secondary to severe dehydration Minimal improvement with half-normal saline -Metabolic encephalopathy severe -Type 2 diabetes mellitus -COPD without any acute exacerbation
[2021-01-17 16:50] LABS: Glucose,Whole Blood 218 mg/dL (75-99)
[2021-01-17 20:07] LABS: Glucose,Whole Blood 262 mg/dL (75-99)
[2021-01-18] MEDS: DEXTROSE 5% IN WATER 1,000 ML IV SCH (05:51)
[2021-01-18 06:22] LABS: Glucose,Whole Blood 170 mg/dL (75-99)
[2021-01-18] MEDS: INSULIN ASPART (NovoLOG) 100 UNIT/ML VIAL SQ SCH ×4 (06:24→20:09)
[2021-01-18 08:59] LABS: Magnesium 1.6 mg/dL (1.6-2.3); Potassium 3.3 mmol/L (3.5-5.1)
[2021-01-18 09:25] LABS: Anisocytosis Slight; HCT 23.8 % (34.0-46.0); HGB 8.2 gm/dL (11.4-16.0); MCH 31.4 pg (25.0-35.0); MCHC 34.3 g/dL (31.0-37.0); MCV 91.5 fL (80.0-100.0); Mean Platelet Volume 8.4; Platelet Count 100 k/uL (150-450); Poikilocytosis Slight; RDW 16.8 % (11.5-15.5); WBC 12.7 k/uL (3.8-10.6)
[2021-01-18] MEDS: PANTOPRAZOLE 40 MG/10 ML VIAL IVP SCH (09:57)
[2021-01-18] MEDS ORDERED: POTASSIUM CHLORIDE 20 MEQ in WATER FOR INJECTION 1 100ML.BAG IVPB STA (10:14)
[2021-01-18] MEDS: MAGNESIUM SULFATE-D5W PMX 1 GM in DEXTROSE/WATER 1 100ML.BAG IVPB SCH ×2 (11:58→13:30)
[2021-01-18] MEDS: SODIUM CHLORIDE 0.9% 1,000 ML IV SCH (11:58)
[2021-01-18 12:16] LABS: Glucose,Whole Blood 110 mg/dL (75-99)
[2021-01-18] MEDS ORDERED: POTASSIUM CHLORIDE 20 MEQ in WATER FOR INJECTION 1 100ML.BAG IVPB ONE (12:30)
--- NOTE | 2021-01-18 13:09 | P.PN ---
Subjective Patient is seen in follow-up for acute kidney injury and electrolyte imbalance. Patient is not a reliable historian. Renal function is improving. Sodium level 143 this morning. Blood pressure stable. Has a Cole catheter for urinary retention. Nonoliguric. Vital signs are stable. General: Appears lethargic. HEENT: No JVD. LUNGS: Breath sounds decreased. HEART: Rate and Rhythm are regular. ABDOMEN: Soft, nontender. EXTREMITITES: No edema. Objective - Vital Signs Vital signs: Vital Signs Temp 97.6 F 01/18/21 12:59 Pulse 70 01/18/21 12:59 Resp 17 01/18/21 12:59 BP 134/64 01/18/21 12:59 Pulse Ox 95 01/18/21 12:59 Intake & Output 01/17/21 01/18/21 01/18/21 18:59 06:59 18:59 Intake Total 975 700 Output Total 900 600 Balance 75 100 Weight 61.5 kg Intake: Intake, IV Titration 975 500 Amount Dextrose 5% in Water 1, 100 500 000 ml @ 100 mls/hr IV . Q10H [facility] Rx#:[id number] Sodium Chloride 0.45% 1, 875 000 ml @ 125 mls/hr IV . Q8H [facility] Rx#:[id number] Oral 200 Output: Urine 900 600 Straight 900 Other: Voiding Method Diaper Indwelling Catheter Indwelling Catheter # Bowel Movements 1 - Labs CBC & Chem 7: 01/18/21 08:07 01/18/21 08:07 Labs: Abnormal Lab Results - Last 24 Hours (Table) 01/17/21 01/17/21 01/17/21 Range/Units 16:45 18:52 20:04 WBC (3.8-10.6) k/uL RBC (3.80-5.40) m/uL Hgb (11.4-16.0) gm/dL Hct (34.0-46.0) % RDW (11.5-15.5) % Plt Count (150-450) k/uL Sodium 146 H (137-145) mmol/L Potassium (3.5-5.1) mmol/L Chloride (98-107) mmol/L BUN (7-17) mg/dL Creatinine (0.52-1.04) mg/dL Glucose (74-99) mg/dL POC Glucose (mg/dL) 218 H 262 H (75-99) mg/dL Calcium (8.4-10.2) mg/dL 01/18/21 01/18/21 01/18/21 Range/Units 06:20 08:07 08:07 WBC 12.7 H (3.8-10.6) k/uL RBC 2.60 L (3.80-5.40) m/uL Hgb 8.2 L (11.4-16.0) gm/dL Hct 23.8 L (34.0-46.0) % RDW 16.8 H (11.5-15.5) % Plt Count 100 L (150-450) k/uL Sodium (137-145) mmol/L Potassium 3.3 L (3.5-5.1) mmol/L Chloride 113 H (98-107) mmol/L BUN 68 H (7-17) mg/dL Creatinine 2.05 H (0.52-1.04) mg/dL Glucose 132 H (74-99) mg/dL POC Glucose (mg/dL) 170 H (75-99) mg/dL Calcium 8.0 L (8.4-10.2) mg/dL 01/18/21 Range/Units 12:05 WBC (3.8-10.6) k/uL RBC (3.80-5.40) m/uL Hgb (11.4-16.0) gm/dL Hct (34.0-46.0) % RDW (11.5-15.5) % Plt Count (150-450) k/uL Sodium (137-145) mmol/L Potassium (3.5-5.1) mmol/L Chloride (98-107) mmol/L BUN (7-17) mg/dL Creatinine (0.52-1.04) mg/dL Glucose (74-99) mg/dL POC Glucose (mg/dL) 110 H (75-99) mg/dL Calcium (8.4-10.2) mg/dL Assessment and Plan Plan: Assessment: 1. Acute kidney injury mostly prerenal secondary to hypovolemia, anemia and diuretics. Creatinine 3.08 on admission - 2.04 today. Unknown baseline renal function. No hydronephrosis noted on kidney ultrasound. Right kidney atrophic. 2. Hypernatremia from lack of oral water intake. Improved with D5W infusion. 3. Hypokalemia from poor intake and diuretics. 4. Diabetes mellitus. 5. Anemia. Maintained on Aranesp. Possible GI bleed. Status post blood transfusion. Iron replete. EGD today. Plan: Change D5W to normal saline at 50 mL an hour. Replace potassium and magnesium. Hold diuretics. Continue to monitor renal function and urine output.
[2021-01-18] MEDS ORDERED: PROPOFOL 10 MG/ML 20 ML VIAL IV ONE (13:52)
[2021-01-18] MEDS ORDERED: SODIUM CHLORIDE 0.9% 500 ML 500 ML IV ONE ×2 (13:55)
--- NOTE | 2021-01-18 14:09 | P.PCN ---
Date of Procedure: 01/18/21 Procedure(s) Performed: BRIEF HISTORY: Patient is a 85-year-old, pleasant, white female admitted to the hospital with altered mental status, severe symptomatic anemia with a hemoglobin of 6.4 g/dL requiring 2 units of blood transfusion. Appetite she was having some darker stools at home. She is hence scheduled for an upper endoscopy to evaluate further. PROCEDURE PERFORMED: Esophagogastroduodenoscopy with biopsy. PREOPERATIVE DIAGNOSIS: Severe anemia and melena. IV sedation per anesthesia. PROCEDURE: After informed consent was obtained, the patient was brought into the endoscopy unit. IV sedation was administered by Anesthesia under continuous monitoring. Initially the Olympus GIF-140 video endoscope was inserted into the mouth. Esophagus intubated without any difficulty. It was gradually advanced into the stomach and duodenum and carefully examined. The bulb and the second part of the duodenum appeared normal. Along the duodenal sweep there was a small polyp noted which was biopsied. The scope at this time was withdrawn to the stomach, adequately insufflated with air, and upon careful examination, mucosa of the antrum, body, cardia and the fundus appeared normal. The scope was then withdrawn into the esophagus. The GE junction was located at 39 cm from the incisors. There were ulcerations and erosions with friability of the mucosa noted in the mid and distal esophagus consistent with severe ulcerative esophagitis. The proximal esophagus appeared normal. The patient tolerated the procedure well. IMPRESSION: 1. Severe ulcerative esophagitis involving the mid and distal esophagus consistent with LA grade B reflux esophagitis. 2. Small duodenal polyp along the duodenal sweep status post biopsy. RECOMMENDATIONS: The findings of this examination were discussed with the patient . She will be continued on Protonix 40 mg twice daily. Diet will be advanced as tolerated...
[2021-01-18 17:05] LABS: Glucose,Whole Blood 129 mg/dL (75-99)
[2021-01-18 20:00] LABS: Glucose,Whole Blood 119 mg/dL (75-99)
[2021-01-19 06:03] LABS: Glucose,Whole Blood 86 mg/dL (75-99)
[2021-01-19] MEDS: INSULIN ASPART (NovoLOG) 100 UNIT/ML VIAL SQ SCH ×4 (06:16→20:11)
[2021-01-19] MEDS: SODIUM CHLORIDE 0.9% 1,000 ML IV SCH ×2 (06:23→22:42)
[2021-01-19] MEDS: PANTOPRAZOLE 40 MG/10 ML VIAL IVP SCH (10:17)
--- NOTE | 2021-01-19 10:43 | P.PN ---
Subjective Progress Note Date: 01/18/21 Principal diagnosis: Acute upper GI bleed and acute blood loss anemia Severe metabolic encephalopathy Acute renal failure Hypovolemic hyponatremia 85-year-old female was sent in because of altered mental status and confusion I'm unable to get much of the history from the patient. Patient found to be severely dehydrated hyper David 3 make. And very low potassium level of 3.1. Patient to serum creatinine is 2.08 baseline is unknown patient received 1 L bolus of normal saline. Patient also takes Lasix as an outpatient. Patient has mildly elevated BNP although no clinical evidence of CHF at this time patient had an ultrasound of the kidney which showed small right-sided kidney and no evidence of hydronephrosis. Patient was also having multiple dark stools. Gastroenterology will evaluate the patient. Patient has mildly elevated troponins patient although denied any chest pain when questioned. Second set of troponin remained stable at the same level EKG showed some ST-T wave abnormalities in the inferior leads and appears to have left ventricular hypertrophy and ST-T wave abnormality this is probably secondary to left ventricular hypertrophy. Objective - Vital Signs Vital signs: Vital Signs Temp 97.8 F 01/18/21 07:34 Pulse 67 01/18/21 08:30 Resp 17 01/18/21 08:30 BP 120/64 01/18/21 07:34 Pulse Ox 96 01/18/21 07:34 Intake & Output 01/17/21 01/18/21 01/18/21 18:59 06:59 18:59 Intake Total 975 700 Output Total 900 600 Balance 75 100 Weight 61.5 kg Intake: Intake, IV Titration 975 500 Amount Dextrose 5% in Water 1, 100 500 000 ml @ 100 mls/hr IV . Q10H [facility] Rx#:[id number] Sodium Chloride 0.45% 1, 875 000 ml @ 125 mls/hr IV . Q8H [facility] Rx#:[id number] Oral 200 Output: Urine 900 600 Straight 900 Other: Voiding Method Diaper Indwelling Catheter Indwelling Catheter # Bowel Movements 1 - Exam GENERAL: The patient is alert and oriented x2, not in any acute distress. Thin built HEENT: Pupils are round and equally reacting to light. EOMI. No scleral icterus. No conjunctival pallor. Normocephalic, atraumatic. No pharyngeal erythema. No thyromegaly. CARDIOVASCULAR: S1 and S2 present. No murmurs, rubs, or gallops. PULMONARY: Chest is clear to auscultation, no wheezing or crackles. ABDOMEN: Soft, nontender, nondistended, normoactive bowel sounds. No palpable organomegaly. MUSCULOSKELETAL: No joint swelling or deformity. EXTREMITIES: No cyanosis, clubbing, or pedal edema. NEUROLOGICAL: Gross neurological examination did not reveal any focal deficits. SKIN: No rashes. - Labs CBC & Chem 7: 01/18/21 08:07 01/18/21 08:07 Labs: Abnormal Lab Results - Last 24 Hours (Table) 01/17/21 01/17/21 01/17/21 Range/Units 16:45 18:52 20:04 WBC (3.8-10.6) k/uL RBC (3.80-5.40) m/uL Hgb (11.4-16.0) gm/dL Hct (34.0-46.0) % RDW (11.5-15.5) % Plt Count (150-450) k/uL Sodium 146 H (137-145) mmol/L Potassium (3.5-5.1) mmol/L Chloride (98-107) mmol/L BUN (7-17) mg/dL Creatinine (0.52-1.04) mg/dL Glucose (74-99) mg/dL POC Glucose (mg/dL) 218 H 262 H (75-99) mg/dL Calcium (8.4-10.2) mg/dL 01/18/21 01/18/21 01/18/21 Range/Units 06:20 08:07 08:07 WBC 12.7 H (3.8-10.6) k/uL RBC 2.60 L (3.80-5.40) m/uL Hgb 8.2 L (11.4-16.0) gm/dL Hct 23.8 L (34.0-46.0) % RDW 16.8 H (11.5-15.5) % Plt Count 100 L (150-450) k/uL Sodium (137-145) mmol/L Potassium 3.3 L (3.5-5.1) mmol/L Chloride 113 H (98-107) mmol/L BUN 68 H (7-17) mg/dL Creatinine 2.05 H (0.52-1.04) mg/dL Glucose 132 H (74-99) mg/dL POC Glucose (mg/dL) 170 H (75-99) mg/dL Calcium 8.0 L (8.4-10.2) mg/dL Assessment and Plan Assessment: -Acute upper GI bleed and acute blood loss anemia from acute upper GI bleed patient will be started on Protonix twice a day, gastroenterology evaluated the patient, patient will undergo upper GI endoscopy tomorrow. -Severe metabolic encephalopathy would warrant encephalopathy from renal failu re. No evidence of infection at this time. -Acute renal failure prerenal azotemia from severe dehydration and diuretics and the patient was started on half-normal saline patient's creatinine minimally improved. -Hyponatremia hypovolemic hyponatremia: Secondary to severe dehydration Minimal improvement with half-normal saline -Metabolic encephalopathy severe -Type 2 diabetes mellitus -COPD without any acute exacerbation
--- NOTE | 2021-01-19 11:43 | P.PN ---
Subjective Progress Note Date: 01/19/21 Follow-up for acute kidney injury. Currently confused. Objective - Vital Signs Vital signs: Vital Signs Temp 99 F 01/19/21 10:15 Pulse 74 01/19/21 10:15 Resp 18 01/19/21 10:15 BP 158/75 01/19/21 10:15 Pulse Ox 93 L 01/19/21 10:15 Intake & Output 01/18/21 01/19/21 01/19/21 18:59 06:59 18:59 Intake Total 800 240 100 Output Total 700 375 Balance 100 -135 100 Weight 54.5 kg Intake: IV 100 Intake, IV Titration 700 Amount Magnesium Sulfate-D5w Pmx 200 1 gm In Dextrose/Water 1 100ml.bag @ 100 mls/hr IVPB Q1H [facility] Rx#: [id number] Potassium Chloride 20 meq 50 In Water For Injection 1 100ml.bag @ 50 mls/hr IVPB ONCE ONE Rx#: [id number] Potassium Chloride 20 meq 50 In Water For Injection 1 100ml.bag @ 50 mls/hr IVPB ONCE STA Rx#: [id number] Sodium Chloride 0.9% 1, 400 000 ml @ 50 mls/hr IV . Q20H [facility] Rx#:[id number] Oral 240 100 Output: Urine 700 375 Uretheral (Cole) 700 Other: Voiding Method Indwelling Catheter Indwelling Catheter Indwelling Catheter # Bowel Movements 1 - Exam No acute distress S1-S2 heard Lungs clear Trace edema - Labs CBC & Chem 7: 01/18/21 08:07 01/18/21 08:07 Labs: Abnormal Lab Results - Last 24 Hours (Table) 01/18/21 01/18/21 01/18/21 Range/Units 12:05 17:02 19:58 POC Glucose (mg/dL) 110 H 129 H 119 H (75-99) mg/dL Assessment and Plan Assessment: #1 acute kidney injury secondary to prerenal process. #2 suspect CKD3, Baseline creatinine unknown. #3 hypokalemia with alkalosis. #4 hyponatremia improved with IVF Plan: #1 renal function stable #2 continue with gentle hydration #3 avoid nephrotoxic agents.
[2021-01-19 11:57] LABS: Glucose,Whole Blood 145 mg/dL (75-99)
[2021-01-19 12:00] LABS: Calcium 8.2 mg/dL (8.4-10.2); Potassium 4.1 mmol/L (3.5-5.1)
--- NOTE | 2021-01-19 12:00 | PN ---
PROGRESS NOTE DATE OF SERVICE: 01/19/2021 INTERVAL HISTORY: Patient is an 85-year-old pleasant white female admitted to the hospital with altered mental status and symptomatic anemia with a hemoglobin of 6.4 g/dL. Receiving a unit of PRBC transfusion. She underwent an upper endoscopy yesterday because she had some black tarry stools. Upper endoscopy revealed severe LA grade 4 reflux esophagitis. Currently on Protonix 40 mg twice daily. She is doing better today. She denies any chest pain. No heartburn. No abdominal pain. No nausea, vomiting. As per the nursing staff, no bleeding. PHYSICAL EXAMINATION: GENERAL: Appears comfortable, no apparent distress. VITAL SIGNS: Stable. Blood pressure is 139/67, pulse is 73, temperature 97.6. HEENT: Examination unremarkable. Conjunctivae are pink. Sclerae anicteric. Oral cavity no lesions. NECK: No JVD or lymph node enlargement. CHEST: Clear to auscultation. HEART: Regular rate and rhythm. ABDOMEN: Soft, it was nontender. Bowel sounds are positive. EXTREMITIES: No pedal edema. NEURO: She is awake, slightly lethargic but answers questions appropriately. LABS: WBC 12.7, hemoglobin 8.2, platelets 8.4. BUN is 68 and creatinine 2.05. IMPRESSION: 1. Severe reflux esophagitis noted on upper endoscopy yesterday. On Protonix 40 mg twice daily. 2. Symptomatic anemia and black tarry stools, probably related to severe reflux esophagitis, status post one unit of PRBC transfusion and hemoglobin is stable. 3. Acute kidney injury. 4. Decreased oral intake. 5. Altered mental status, gradually improving. RECOMMENDATIONS: 1. Continue with Protonix 40 mg twice daily. 2. Advance diet as tolerated. 3. Monitor CBC daily. 4. We will follow with you. Thank you for this consultation. MMODL / IJN: [id number] /
[2021-01-19 12:06] LABS: Anisocytosis Slight; Basophils % (A) 0 %; Eosinophils # (A) 0.5 k/uL (0-0.7); Eosinophils % (A) 5 %; HCT 26.5 % (34.0-46.0); HGB 8.6 gm/dL (11.4-16.0); Hypochromasia Slight; Lymphocytes # (A) 0.5 k/uL (1.0-4.8); Lymphocytes % (A) 5 %; MCHC 32.5 g/dL (31.0-37.0); MCV 92.3 fL (80.0-100.0); Mean Platelet Volume 9.6; Monocytes # (A) 0.4 k/uL (0-1.0); Monocytes % (A) 5 %; Neutrophils # (A) 7.7 k/uL (1.3-7.7); Neutrophils % (A) 84 %; RBC 2.87 m/uL (3.80-5.40); RDW 17.8 % (11.5-15.5); WBC 9.2 k/uL (3.8-10.6)
[2021-01-19 13:11] LABS: Platelet Count 91 k/uL (150-450)
[2021-01-19 16:45] LABS: Glucose,Whole Blood 139 mg/dL (75-99)
--- NOTE | 2021-01-19 18:20 | P.PN ---
Subjective Progress Note Date: 01/19/21 Principal diagnosis: Acute upper GI bleed and acute blood loss anemia Severe metabolic encephalopathy Acute renal failure Hypovolemic hyponatremia 85-year-old female was sent in because of altered mental status and confusion I'm unable to get much of the history from the patient. Patient found to be severely dehydrated hyper David 3 make. And very low potassium level of 3.1. Patient to serum creatinine is 2.08 baseline is unknown patient received 1 L bolus of normal saline. Patient also takes Lasix as an outpatient. Patient has mildly elevated BNP although no clinical evidence of CHF at this time patient had an ultrasound of the kidney which showed small right-sided kidney and no evidence of hydronephrosis. Patient was also having multiple dark stools. Gastroenterology will evaluate the patient. Patient has mildly elevated troponins patient although denied any chest pain when questioned. Second set of troponin remained stable at the same level EKG showed some ST-T wave abnormalities in the inferior leads and appears to have left ventricular hypertrophy and ST-T wave abnormality this is probably secondary to left ventricular hypertrophy. 01/19/2021 Patient is seen and evaluated in room at bedside; remains confused Vital signs are stable with temperature of 99, pulse 74, respiration 18 and blood pressure of 158/75 labs are reviewed and hemoglobin is stable at 8.6, BUN/creatinine are improved at 50/1.6 continue with gentle hydration; avoid nephrotoxic agents. patient underwent EGD which revealed severe reflux esophagitis; GI recommending to continue Protonix 40 mg twice a day; advance diet as tolerated and continue t o monitor CBC Objective - Vital Signs Vital signs: Vital Signs Temp 99 F 01/19/21 10:15 Pulse 74 01/19/21 10:15 Resp 18 01/19/21 10:15 BP 158/75 01/19/21 10:15 Pulse Ox 93 L 01/19/21 10:15 Intake & Output 01/18/21 01/19/21 01/19/21 18:59 06:59 18:59 Intake Total 800 240 100 Output Total 700 375 Balance 100 -135 100 Weight 54.5 kg Intake: IV 100 Intake, IV Titration 700 Amount Magnesium Sulfate-D5w Pmx 200 1 gm In Dextrose/Water 1 100ml.bag @ 100 mls/hr IVPB Q1H [facility] Rx#: [id number] Potassium Chloride 20 meq 50 In Water For Injection 1 100ml.bag @ 50 mls/hr IVPB ONCE ONE Rx#: [id number] Potassium Chloride 20 meq 50 In Water For Injection 1 100ml.bag @ 50 mls/hr IVPB ONCE STA Rx#: [id number] Sodium Chloride 0.9% 1, 400 000 ml @ 50 mls/hr IV . Q20H [facility] Rx#:[id number] Oral 240 100 Output: Urine 700 375 Uretheral (Cole) 700 Other: Voiding Method Indwelling Catheter Indwelling Catheter # Bowel Movements 1 - Exam GENERAL: The patient is alert and oriented x2, not in any acute distress. Thin built HEENT: Pupils are round and equally reacting to light. EOMI. No scleral icterus. No conjunctival pallor. Normocephalic, atraumatic. No pharyngeal erythema. No thyromegaly. CARDIOVASCULAR: S1 and S2 present. No murmurs, rubs, or gallops. PULMONARY: Chest is clear to auscultation, no wheezing or crackles. ABDOMEN: Soft, nontender, nondistended, normoactive bowel sounds. No palpable organomegaly. MUSCULOSKELETAL: No joint swelling or deformity. EXTREMITIES: No cyanosis, clubbing, or pedal edema. NEUROLOGICAL: Gross neurological examination did not reveal any focal deficits. SKIN: No rashes. - Labs CBC & Chem 7: 01/19/21 10:54 01/19/21 10:54 Labs: Abnormal Lab Results - Last 24 Hours (Table) 01/18/21 01/18/21 01/18/21 Range/Units 12:05 17:02 19:58 POC Glucose (mg/dL) 110 H 129 H 119 H (75-99) mg/dL Assessment and Plan Assessment: -Acute upper GI bleed and acute blood loss anemia from acute upper GI bleed patient will be started on Protonix twice a day, gastroenterology evaluated the patient, patient will undergo upper GI endoscopy tomorrow. -Severe metabolic encephalopathy would warrant encephalopathy from renal failure. No evidence of infection at this time. -Acute renal failure prerenal azotemia from severe dehydration and diuretics and the patient was started on half-normal saline patient's creatinine minimally improved. -Hyponatremia hypovolemic hyponatremia: Secondary to severe dehydration Minimal improvement with half-normal saline -Metabolic encephalopathy severe -Type 2 diabetes mellitus -COPD without any acute exacerbation
[2021-01-19 19:55] LABS: Glucose,Whole Blood 179 mg/dL (75-99)
[2021-01-20 05:59] LABS: Glucose,Whole Blood 85 mg/dL (75-99)
[2021-01-20] MEDS: INSULIN ASPART (NovoLOG) 100 UNIT/ML VIAL SQ SCH ×4 (06:00→20:47)
[2021-01-20 08:42] LABS: Anisocytosis Slight; Basophils % (A) 0 %; Eosinophils # (A) 0.6 k/uL (0-0.7); Eosinophils % (A) 6 %; HGB 8.8 gm/dL (11.4-16.0); Hypochromasia Slight; Lymphocytes # (A) 0.5 k/uL (1.0-4.8); Lymphocytes % (A) 6 %; MCH 31.8 pg (25.0-35.0); MCHC 33.9 g/dL (31.0-37.0); MCV 93.9 fL (80.0-100.0); Macrocytosis Slight; Mean Platelet Volume 8.9; Monocytes # (A) 0.7 k/uL (0-1.0); Monocytes % (A) 7 %; Neutrophils # (A) 7.5 k/uL (1.3-7.7); Neutrophils % (A) 80 %; Platelet Count 118 k/uL (150-450); Poikilocytosis Slight; RBC 2.77 m/uL (3.80-5.40); RDW 17.6 % (11.5-15.5); WBC 9.5 k/uL (3.8-10.6)
[2021-01-20 08:53] LABS: Calcium 8.1 mg/dL (8.4-10.2); Magnesium 1.8 mg/dL (1.6-2.3)
[2021-01-20] MEDS: PANTOPRAZOLE 40 MG/10 ML VIAL IVP SCH (10:31)
--- NOTE | 2021-01-20 11:51 | PN ---
PROGRESS NOTE DATE OF DICTATION: January 20, 2021 Patient is an 85-year-old pleasant white female admitted to the hospital with severe symptomatic anemia. She had an EGD done 2 days ago which showed severe LA grade 4 reflux esophagitis. She is on Protonix 40 mg twice daily. She is doing much better. Her oral intake is improving. No bleeding. PHYSICAL EXAMINATION: Appears comfortable. Vital signs stable. Blood pressure 109/55, pulse rate 73. Temperature 97.5. HEENT examination unremarkable. Conjunctivae pink. Sclerae anicteric. Oral cavity no lesions. NECK no JVD or lymph node enlargement. CHEST was clear to auscultation. HEART: Regular rate and rhythm. ABDOMEN: Soft. Bowel sounds are positive. No organomegaly. EXTREMITIES: No pedal edema. NEURO: She is alert and oriented x3. No focal deficits. IMPRESSION: 1. Severe symptomatic anemia/gastrointestinal bleed status post EGD 2 years ago that showed LA grade 4 reflux esophagitis on Protonix 40 mg twice daily, doing well. 2. Acute kidney injury. BUN and creatinine are gradually improving. 3. Altered mental status, improving. 4. History of diabetes mellitus. 5. Electrolyte abnormalities improving. RECOMMENDATIONS: 1. Continue with Protonix 40 mg twice daily. 2. Advance diet as tolerated. 3. Monitor CBC daily. 4. Since patient is doing well, we will sign off. Please call us if needed. Thank you for this consultation. VISHNU / CORTNEYN: [id number] /
[2021-01-20 11:58] LABS: Glucose,Whole Blood 121 mg/dL (75-99)
--- NOTE | 2021-01-20 13:35 | P.PN ---
Subjective Progress Note Date: 01/20/21 Follow-up for acute kidney injury. Currently confused. Objective - Vital Signs Vital signs: Vital Signs Temp 97.9 F 01/20/21 12:40 Pulse 85 01/20/21 12:40 Resp 18 01/20/21 12:40 BP 150/64 01/20/21 12:40 Pulse Ox 100 01/20/21 12:40 Intake & Output 01/19/21 01/20/21 01/20/21 18:59 06:59 18:59 Intake Total 336 238 118 Output Total 650 650 250 Balance -314 412 -132 Weight 55 kg Intake: Oral 336 238 118 Output: Urine 650 650 250 Other: Voiding Method Indwelling Catheter Indwelling Catheter Indwelling Catheter - Exam No acute distress S1-S2 heard Lungs clear Trace edema - Labs CBC & Chem 7: 01/20/21 07:54 01/20/21 07:54 Labs: Abnormal Lab Results - Last 24 Hours (Table) 01/19/21 01/19/21 01/20/21 Range/Units 16:43 19:54 07:54 RBC 2.77 L (3.80-5.40) m/uL Hgb 8.8 L (11.4-16.0) gm/dL Hct 26.0 L (34.0-46.0) % RDW 17.6 H (11.5-15.5) % Plt Count 118 L (150-450) k/uL Lymphocytes # 0.5 L (1.0-4.8) k/uL Chloride (98-107) mmol/L BUN (7-17) mg/dL Creatinine (0.52-1.04) mg/dL Glucose (74-99) mg/dL POC Glucose (mg/dL) 139 H 179 H (75-99) mg/dL Calcium (8.4-10.2) mg/dL 01/20/21 01/20/21 Range/Units 07:54 11:56 RBC (3.80-5.40) m/uL Hgb (11.4-16.0) gm/dL Hct (34.0-46.0) % RDW (11.5-15.5) % Plt Count (150-450) k/uL Lymphocytes # (1.0-4.8) k/uL Chloride 112 H (98-107) mmol/L BUN 39 H (7-17) mg/dL Creatinine 1.52 H (0.52-1.04) mg/dL Glucose 113 H (74-99) mg/dL POC Glucose (mg/dL) 121 H (75-99) mg/dL Calcium 8.1 L (8.4-10.2) mg/dL Assessment and Plan Assessment: #1 acute kidney injury secondary to prerenal process. #2 suspect CKD3, Baseline creatinine unknown. #3 hypokalemia with alkalosis. #4 hyponatremia improved with IVF Plan: #1 renal function stable #2 continue with gentle hydration #3 avoid nephrotoxic agents.
[2021-01-20 16:58] LABS: Glucose,Whole Blood 127 mg/dL (75-99)
[2021-01-20 19:55] LABS: Glucose,Whole Blood 182 mg/dL (75-99)
--- NOTE | 2021-01-20 20:47 | P.PN ---
Subjective Progress Note Date: 01/20/21 Principal diagnosis: Acute upper GI bleed and acute blood loss anemia Severe metabolic encephalopathy Acute renal failure Hypovolemic hyponatremia 85-year-old female was sent in because of altered mental status and confusion I'm unable to get much of the history from the patient. Patient found to be severely dehydrated hyper David 3 make. And very low potassium level of 3.1. Patient to serum creatinine is 2.08 baseline is unknown patient received 1 L bolus of normal saline. Patient also takes Lasix as an outpatient. Patient has mildly elevated BNP although no clinical evidence of CHF at this time patient had an ultrasound of the kidney which showed small right-sided kidney and no evidence of hydronephrosis. Patient was also having multiple dark stools. Gastroenterology will evaluate the patient. Patient has mildly elevated troponins patient although denied any chest pain when questioned. Second set of troponin remained stable at the same level EKG showed some ST-T wave abnormalities in the inferior leads and appears to have left ventricular hypertrophy and ST-T wave abnormality this is probably secondary to left ventricular hypertrophy. 01/19/2021 Patient is seen and evaluated in room at bedside; remains confused Vital signs are stable with temperature of 99, pulse 74, respiration 18 and blood pressure of 158/75 labs are reviewed and hemoglobin is stable at 8.6, BUN/creatinine are improved at 50/1.6 continue with gentle hydration; avoid nephrotoxic agents. patient underwent EGD which revealed severe reflux esophagitis; GI recommending to continue Protonix 40 mg twice a day; advance diet as tolerated and continue t o monitor CBC 01/20/2021 Patient is seen and evaluated in room at bedside; remains pleasantly confused; vital signs are reviewed and stable; lab review shows creatinine down to 1.6; electrolyte imbalance resolve; Nephrology on board; renal function stable; continue with gentle hydration; avoid nephrotoxic agents. S/P EGD which revealed severe reflux esophagitis; GI recommending to continue Protonix 40 mg twice a day; advance diet as tolerated and continue to monitor CBC; Hgb currently stable Objective - Vital Signs Vital signs: Vital Signs Temp 97.5 F L 01/20/21 03:53 Pulse 73 01/20/21 03:53 Resp 18 01/20/21 03:53 BP 109/55 01/20/21 03:53 Pulse Ox 100 01/20/21 03:53 Intake & Output 01/19/21 01/20/21 01/20/21 18:59 06:59 18:59 Intake Total 336 238 118 Output Total 650 650 Balance -314 -412 118 Weight 55 kg Intake: Oral 336 238 118 Output: Urine 650 650 Other: Voiding Method Indwelling Catheter Indwelling Catheter - Exam GENERAL: The patient is alert and oriented x2, not in any acute distress. Thin built HEENT: Pupils are round and equally reacting to light. EOMI. No scleral icterus. No conjunctival pallor. Normocephalic, atraumatic. No pharyngeal erythema. No thyromegaly. CARDIOVASCULAR: S1 and S2 present. No murmurs, rubs, or gallops. PULMONARY: Chest is clear to auscultation, no wheezing or crackles. ABDOMEN: Soft, nontender, nondistended, normoactive bowel sounds. No palpable organomegaly. MUSCULOSKELETAL: No joint swelling or deformity. EXTREMITIES: No cyanosis, clubbing, or pedal edema. NEUROLOGICAL: Gross neurological examination did not reveal any focal deficits. SKIN: No rashes. - Labs CBC & Chem 7: 01/20/21 07:54 01/20/21 07:54 Labs: Abnormal Lab Results - Last 24 Hours (Table) 01/19/21 01/19/21 01/19/21 Range/Units 10:54 10:54 11:56 RBC 2.87 L (3.80-5.40) m/uL Hgb 8.6 L (11.4-16.0) gm/dL Hct 26.5 L (34.0-46.0) % RDW 17.8 H (11.5-15.5) % Plt Count 91 L (150-450) k/uL Lymphocytes # 0.5 L (1.0-4.8) k/uL Chloride 113 H (98-107) mmol/L BUN 50 H (7-17) mg/dL Creatinine 1.61 H (0.52-1.04) mg/dL Glucose 142 H (74-99) mg/dL POC Glucose (mg/dL) 145 H (75-99) mg/dL Calcium 8.2 L (8.4-10.2) mg/dL 01/19/21 01/19/21 01/20/21 Range/Units 16:43 19:54 07:54 RBC 2.77 L (3.80-5.40) m/uL Hgb 8.8 L (11.4-16.0) gm/dL Hct 26.0 L (34.0-46.0) % RDW 17.6 H (11.5-15.5) % Plt Count 118 L (150-450) k/uL Lymphocytes # 0.5 L (1.0-4.8) k/uL Chloride (98-107) mmol/L BUN (7-17) mg/dL Creatinine (0.52-1.04) mg/dL Glucose (74-99) mg/dL POC Glucose (mg/dL) 139 H 179 H (75-99) mg/dL Calcium (8.4-10.2) mg/dL 01/20/21 Range/Units 07:54 RBC (3.80-5.40) m/uL Hgb (11.4-16.0) gm/dL Hct (34.0-46.0) % RDW (11.5-15.5) % Plt Count (150-450) k/uL Lymphocytes # (1.0-4.8) k/uL Chloride 112 H (98-107) mmol/L BUN 39 H (7-17) mg/dL Creatinine 1.52 H (0.52-1.04) mg/dL Glucose 113 H (74-99) mg/dL POC Glucose (mg/dL) (75-99) mg/dL Calcium 8.1 L (8.4-10.2) mg/dL Assessment and Plan Assessment: -Acute upper GI bleed and acute blood loss anemia from acute upper GI bleed patient will be started on Protonix twice a day, gastroenterology evaluated the patient, patient will undergo upper GI endoscopy tomorrow. -Severe metabolic encephalopathy would warrant encephalopathy from renal failure. No evidence of infection at this time. -Acute renal failure prerenal azotemia from severe dehydration and diuretics and the patient was started on half-normal saline patient's creatinine minimally improved. -Hyponatremia hypovolemic hyponatremia: Secondary to severe dehydration Minimal improvement with half-normal saline -Metabolic encephalopathy severe -Type 2 diabetes mellitus -COPD without any acute exacerbation
[2021-01-21] MEDS: SODIUM CHLORIDE 0.9% 1,000 ML IV SCH (02:03)
[2021-01-21 04:01] VITALS: RESP 16
[2021-01-21 06:24] LABS: Glucose,Whole Blood 76 mg/dL (75-99)
[2021-01-21] MEDS: INSULIN ASPART (NovoLOG) 100 UNIT/ML VIAL SQ SCH (06:24)
--- NOTE | 2021-01-21 08:26 | P.DS ---
Providers Date of admission: 01/16/21 12:47 Attending physician: Joseluis Ashraf Consults: 01/16/21 12:48 Consult Physician Urgent Consulting Provider: Nasim Coburn Consult Reason/Comments: paco, acute hypernatremia Do you want consulting provider notified?: Yes Consult Physician Urgent Consulting Provider: Yamel Doshi Consult Reason/Comments: gi bleed Do you want consulting provider notified?: Yes Primary care physician: [facility] Course: 85-year-old female was sent in because of altered mental status and confusion I'm unable to get much of the history from the patient. Patient found to be severely dehydrated hyper David 3 make. And very low potassium level of 3.1. Patient to serum creatinine is 2.08 baseline is unknown patient received 1 L bolus of normal saline. Patient also takes Lasix as an outpatient. Patient has mildly elevated BNP although no clinical evidence of CHF at this time patient had an ultrasound of the kidney which showed small right-sided kidney and no evidence of hydronephrosis. Patient was also having multiple dark stools. Gastroenterology will evaluate the patient. Patient has mildly elevated troponins patient although denied any chest pain when questioned. Second set of troponin remained stable at the same level EKG showed some ST-T wave abnormalities in the inferior leads and appears to have left ventricular hypertrophy and ST-T wave abnormality this is probably secondary to left ventricular hypertrophy. 01/19/2021 Patient is seen and evaluated in room at bedside; remains confused Vital signs are stable with temperature of 99, pulse 74, respiration 18 and blood pressure of 158/75 labs are reviewed and hemoglobin is stable at 8.6, BUN/creatinine are improved at 50/1.6 continue with gentle hydration; avoid nephrotoxic agents. patient underwent EGD which revealed severe reflux esophagitis; GI recommending to continue Protonix 40 mg twice a day; advance diet as tolerated and continue to monitor CBC 01/20/2021 Patient is seen and evaluated in room at bedside; remains pleasantly confused; vital signs are reviewed and stable; lab review shows creatinine down to 1.6; electrolyte imbalance resolve; Nephrology on board; renal function stable; continue with gentle hydration; avoid nephrotoxic agents. S/P EGD which revealed severe reflux esophagitis; GI recommending to continue Protonix 40 mg twice a day; advance diet as tolerated and continue to monitor CBC; Hgb currently stable 01/21/2021 The patient is status is at her baseline patient appears to have advanced dementia. Patient's abdomen is stable patient doesn't have any more GI bleed patient does have severe esophagitis. Patient will be discharged on 14 days of Protonix twice a day followed by daily. 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 Family decided on hospice once she goes [facility] which I believe is appropriate. - Exam GENERAL: The patient is alert and oriented x2, not in any acute distress. Thin built HEENT: Pupils are round and equally reacting to light. EOMI. No scleral icterus. No conjunctival pallor. Normocephalic, atraumatic. No pharyngeal erythema. No thyromegaly. CARDIOVASCULAR: S1 and S2 present. No murmurs, rubs, or gallops. PULMONARY: Chest is clear to auscultation, no wheezing or crackles. ABDOMEN: Soft, nontender, nondistended, normoactive bowel sounds. No palpable organomegaly. MUSCULOSKELETAL: No joint swelling or deformity. EXTREMITIES: No cyanosis, clubbing, or pedal edema. NEUROLOGICAL: Gross neurological examination did not reveal any focal deficits. SKIN: No rashes. Assessment and Plan Assessment: -Acute upper GI bleed and acute blood loss anemia from acute upper GI bleed from severe reflux esophagitis patient had an upper GI endoscopy patient will be started on Protonix twice a day -Severe metabolic encephalopathy, encephalopathy from renal failure. No evidence of infection at this time. -Acute renal failure prerenal azotemia from severe dehydration and diuretics were diuretics were discontinued and patient will be discharged today -Hyponatremia hypovolemic hyponatremia: Secondary to severe dehydration improved with IV fluids -Metabolic encephalopathy severe -Type 2 diabetes mellitus -COPD without any acute exacerbation Patient Condition at Discharge: Poor Plan - Discharge Summary Discharge Rx Participant: No New Discharge Prescriptions: New Darbepoetin Enrrique [Aranesp] 40 mcg SQ Q7D syringe Pantoprazole Sodium [Protonix] 40 mg PO BID #30 tablet.dr Continue Albuterol Sulfate [Ventolin HFA] 2 puff INHALATION RT-Q6H PRN PRN Reason: Shortness Of Breath Acetaminophen Tab [Tylenol] 650 mg PO Q6H PRN PRN Reason: Pain INSULIN LISPRO (humaLOG) [humaLOG] See Protocol SQ ACHS Calcium Carbonate/Vitamin D3 [Calcium 500 mg-Vit D3 5 mcg (200 Unit)] 1 tab PO DAILY@0700 Discontinued Furosemide [Lasix] 20 mg PO BID@0700,1600 Insulin Degludec [Tresiba Flextouch U-100] 14 units SQ DAILY@0700 Carvedilol [Coreg] 25 mg PO BID@0700,1600 Omeprazole 20 mg PO HS@2000 Discharge Medication List Acetaminophen Tab [Tylenol] 650 mg PO Q6H PRN 01/16/21 [History] Albuterol Sulfate [Ventolin HFA] 2 puff INHALATION RT-Q6H PRN 01/16/21 [History] Calcium Carbonate/Vitamin D3 [Calcium 500 mg-Vit D3 5 mcg (200 Unit)] 1 tab PO DAILY@0700 01/16/21 [History] INSULIN LISPRO (humaLOG) [humaLOG] See Protocol SQ ACHS 01/16/21 [History] Darbepoetin Enrrique [Aranesp] 40 mcg SQ Q7D syringe 01/21/21 [Rx] Pantoprazole Sodium [Protonix] 40 mg PO BID #30 tablet. 01/21/21 [Rx] Follow up Appointment(s)/Referral(s): Terrance Kaplan MD [Primary Care Provider] - 3 Days Yamel Doshi MD [STAFF PHYSICIAN] - 1 Week
--- NOTE | 2021-01-21 08:56 | XR ---
EXAMINATION TYPE: XR chest 1V DATE OF EXAM: 01/21/2021 CLINICAL HISTORY: Difficulty breathing progress study. TECHNIQUE: Single AP portable upright view of the chest is obtained. COMPARISON: Chest x-ray from January 17 and January 16, 2021 FINDINGS: Persistent bilateral reticulonodular multifocal and confluent opacities greatest in the pe riphery and the retrocardiac region on background low lung volumes. Osseous structures remain deminer alized. Cardiac silhouette size is stable and mildly enlarged . Osseous structures remain intact. IMPRESSION: No significant change from prior x-rays. Correlate to exclude covid-19 infection in curre nt environment advised if has not been performed. Correlation with old outside x-ray or CT would be e xtremely beneficial to assess if there is underlying chronic parenchymal fibrosis versus atypical inf iltrates and/or edema.
[2021-01-21] MEDS: PANTOPRAZOLE 40 MG/10 ML VIAL IVP SCH (09:40)
[2021-01-21 11:29] VITALS: BP 121/66; PULSE 84; TEMP 97.7
--- NOTE | 2021-01-21 14:55 | PN ---
PROGRESS NOTE The patient is seen for followup for acute kidney injury. Renal function has improved. She is awake, comfortable, not in any acute distress. PHYSICAL EXAMINATION: On examination today, blood pressure was 132/61, heart rate 77 per minute. She is afebrile. EXAMINATION OF THE HEART: S1, S2. EXAMINATION OF THE LUNGS: Decreased breath sounds at bases. Abdomen is soft, nontender. Examination of lower extremities shows edema 1+ bilaterally. OPHTHALMIC SURGICAL ASSISTANT exam grossly intact. LABS: Labs show from yesterday serum creatinine 1.52, BUN 39, sodium 143, potassium 4.0, hemoglobin 8.8 g/dL. ASSESSMENT: 1. Acute kidney injury, prerenal, currently improved. 2. Possible underlying Chronic kidney disease stage 3. 3. Hypokalemia with alkalosis. 4. Hyponatremia which was hypovolemic, now improved. PLAN: Okay for discharge. Monitor labs as outpatient. MMODL / IJN: [id number] /
== END 2021-01-21 12:13 | DRG 368 ==
LOC: EC 09:18 → 3SCARD 12:47
PROVIDERS: ADMIT Internal Medicine; ATTEND Internal Medicine
PROC: 30233N1 Transfusion of Nonautologous Red Blood Cells into Peripheral Vein, Percutaneous Approach (ICD-10-PCS; 2021-01-17)
PROC: 0DB98ZX Excision of Duodenum, Via Natural or Artificial Opening Endoscopic, Diagnostic (ICD-10-PCS; principal; 2021-01-18 08:15)
DX: K21.01 Gastro-esophageal reflux disease with esophagitis, with bleeding (principal); G93.41 Metabolic encephalopathy; N17.9 Acute kidney failure, unspecified; D62 Acute posthemorrhagic anemia; E87.0 Hyperosmolality and hypernatremia; E87.3 Alkalosis; K31.7 Polyp of stomach and duodenum; N18.30 Chronic kidney disease, stage 3 unspecified; R09.02 Hypoxemia; J44.9 Chronic obstructive pulmonary disease, unspecified; E11.22 Type 2 diabetes mellitus with diabetic chronic kidney disease; E78.5 Hyperlipidemia, unspecified; E86.0 Dehydration; D63.1 Anemia in chronic kidney disease; E86.1 Hypovolemia; E87.6 Hypokalemia; F03.90 Unspecified dementia, unspecified severity, without behavioral disturbance, psychotic disturbance, mood disturbance, and anxiety; I12.9 Hypertensive chronic kidney disease with stage 1 through stage 4 chronic kidney disease, or unspecified chronic kidney disease; Z79.4 Long term (current) use of insulin; Z79.899 Other long term (current) drug therapy; Z20.822 Contact with and (suspected) exposure to COVID-19
CPT/HCPCS: 36415; 43239; 70450; 71045; 76770; 80048; 80053; 81001; 82140; 82272; 82550; 82728; 83540; 83550; 83735; 83880; 84295; 84484; 85025; 85027; 85610; 85730; 86850; 86900; 86901; 86920; 87636; 88305; 93005; 99285